=== PATIENT | male | born 1955 | race Caucasian/White ===

== ENCOUNTER 2025-02-12 21:37 | Inpatient (IN) | payer MEDICARE, OTHER ==
[~2025-02-12] VITALS: Ht 170.2 cm; Wt 73.5 kg
[2025-02-12] MEDS: SODIUM CHLORIDE 0.9% (SEPSIS BOLUS) IV ONE (22:34)
[2025-02-12 22:39] LABS: HEMATOCRIT. 35.8 % (42.0-52.0); HEMOGLOBIN. 11.4 g/dL (14.0-18.0); MEAN CORPUSCULAR HEMOGLOBIN 27.9 pg (28.0-32.0); MEAN CORPUSCULAR HGB CONC 31.8 g/dL (31.0-37.0); MEAN CORPUSCULAR VOLUME 87.7 fL (80.0-94.0); MEAN PLATELET VOLUME 8.4 fl (7.4-10.4); PLATELET 208 x1000/uL (130-400); RED BLOOD CELL COUNT 4.08 mill/uL (4.7-6.1); RED CELL DISTRIBUTION WIDTH 15.3 % (11.6-14.6)
[2025-02-12 22:41] LABS: DIFFERENTIAL COMMENT 1
[2025-02-12 22:49] LABS: CHLORIDE 92 mEq/L (98-107); POTASSIUM 3.6 mEq/L (3.5-5.1); SODIUM 137 mEq/L (136-145)
[2025-02-12 22:50] LABS: CALCIUM 9.2 mg/dL (8.7-10.4)
[2025-02-12 22:55] LABS: CREATININE 0.3 mg/dL (0.6-1.3); ETHANOL BLOOD < 10 mg/dL (<10); GLUCOSE 149 mg/dL (70-105); TROPONIN I HIGH SENSITIVITY 5 ng/L (3.0-53); UREA NITROGEN BLOOD 11 mg/dL (9-23)
[2025-02-12 22:57] LABS: ALANINE AMINOTRANSFERASE 9 IU/L (10-49); ALBUMIN 3.4 g/dL (3.2-4.8); ASPARTATE AMINOTRANSFERASE 17 IU/L (<34); BILIRUBIN DIRECT < 0.1 mg/dL (<=3.0); BILIRUBIN TOTAL 0.3 mg/dL (0.1-1.0); PROTEIN TOTAL 6.3 g/dL (6.0-8.3)
[2025-02-12 22:59] LABS: CARBON DIOXIDE > 40 mEq/L (21-32)
[2025-02-12] MEDS ORDERED: VANCOMYCIN 1000MG/250ML 250 ML IV ONE (23:00)
[2025-02-12 23:04] LABS: PLATELET ESTIMATE NORMAL
[2025-02-12 23:05] LABS: ANISOCYTOSIS 1+
[2025-02-12] MEDS: PIPERACILLIN/TAZO 3.375G/50ML 50 ML IV NR (23:07)
[2025-02-12] MEDS: VANCOMYCIN 1GM/200ML PMX (BAXTER) IV NR (23:20)
[2025-02-12 23:22] LABS: CLARITY URINE CLOUDY (CLEAR); COLOR URINE DARK YELLOW (YELLOW); GLUCOSE URINE NEGATIVE (NEGATIVE); KETONES URINE NEGATIVE (NEGATIVE); LEUKOCYTE ESTERASE URINE 2+ (NEGATIVE); NITRITE URINE POSITIVE (NEGATIVE); OCCULT BLOOD URINE 3+ (NEGATIVE); PROTEIN URINE 2+ (NEGATIVE); SPECIFIC GRAVITY URINE 1.022 (1.005-1.030)
[2025-02-12 23:31] LABS: *AMPHETAMINES SCREEN URINE NEGATIVE (NEGATIVE); *BARBITURATES SCREEN URINE NEGATIVE (NEGATIVE); *BENZODIAZEPINES SCREEN URINE NEGATIVE (NEGATIVE); *COCAINE SCREEN URINE NEGATIVE (NEGATIVE); CANNABINOID URINE SCREEN NEGATIVE (NEGATIVE); ECSTASY MDMA SCREEN URINE NEGATIVE (NEGATIVE); METHADONE URINE SCREEN NEGATIVE (NEGATIVE); OPIATES URINE SCREEN NEGATIVE (NEGATIVE); PHENCYCLIDINE URINE SCREEN NEGATIVE (NEGATIVE)
[2025-02-12] MEDS: ACETAMINOPHEN 325MG TABLET PO ONE (23:38)
[2025-02-12 23:43] LABS: BACTERIA URINE 2+; RBC URINE TNTC /hpf (0-2); SQUAMOUS EPITHELIAL CELL URINE FEW /lpf (RARE/1+); WBC URINE TNTC /hpf (0-2)
[2025-02-12 23:54] LABS: INR 1.3; PROTHROMBIN TIME 13.5 sec (9.6-11.0)
[2025-02-12 23:56] LABS: BG CARBOXYHEMOGLOBIN 0.5 % (0.5-1.5); BG DEOXYHEMOGLOBIN 1.8 % (0.0-5.0); BG FRACTION INSPIRED OXYGEN 32; BG HCO3 ACT 40.6 mmol/L (21.0-28.0); BG METHEMOGLOBIN 0.4 % (0.5-1.5); BG OXYGEN SATURATION 98.2 % (94.0-98.0); BG OXYHEMOGLOBIN 97.3 % (94.0-98.0); BG PCO2 85.1 mmHg (35.0-48.0); BG PH 7.296 (7.350-7.450); BG PO2 104.8 mmHg (83.0-108.0); BG SAMPLE SITE RIGHT BRACHIAL; BG VENT MODE NASAL CANNULA
[2025-02-13] VITALS (82 sets, daily range): BP systolic 92–158; BP diastolic 51–76; PULSE 71–96; RESP 13–22; TEMP 36.7–38.9; O2SAT 94–100
[2025-02-13] MEDS ORDERED: SUCCINYLCHOLINE CHLORIDE 200MG/10ML IV ONE (00:30)
[2025-02-13] MEDS ORDERED: NOREPINEPHRINE 8MG/250ML PMX 250 ML IV ONE (00:30)
[2025-02-13] MEDS ORDERED: ETOMIDATE 2MG/ML 10ML VIAL IV ONE ×2 (00:30)
[2025-02-13] MEDS: PROPOFOL 10MG/ML 100ML 100 ML IV ONE (00:40)
[2025-02-13] MEDS ORDERED: ONDANSETRON HCL 4MG/2ML INJ IV PRN (00:45)
[2025-02-13] MEDS ORDERED: HYDROCODONE/ACETAMINOPHEN 5/325MG TABLET PO PRN (00:45)
[2025-02-13] MEDS ORDERED: CLONIDINE 0.1MG TABLET PO PRN (00:45)
[2025-02-13] MEDS ORDERED: NALOXONE HCL 0.4MG/ML VIAL IV PRN (01:00)
[2025-02-13] MEDS: NOREPINEPHRINE 8MG/250ML PMX 250 ML IV PRN (02:47)
[2025-02-13] MEDS: PIPERACILLIN/TAZO 3.375G/50ML 50 ML IV SCH (05:18)
[2025-02-13] MEDS: VANCOMYCIN 1GM/200ML PMX (BAXTER) IV SCH ×2 (05:18→20:09)
[2025-02-13 05:29] LABS: BG BASE EXCESS 13.7 mmol/L (-2.0-3.0); BG CARBOXYHEMOGLOBIN 0.7 % (0.5-1.5); BG DEOXYHEMOGLOBIN 0.7 % (0.0-5.0); BG FRACTION INSPIRED OXYGEN 50; BG HCO3 ACT 37.2 mmol/L (21.0-28.0); BG OXYGEN SATURATION 99.3 % (94.0-98.0); BG OXYHEMOGLOBIN 98.6 % (94.0-98.0); BG PH 7.565 (7.350-7.450); BG PO2 121.9 mmHg (83.0-108.0); BG SAMPLE SITE RIGHT RADIAL; BG TOTAL HEMOGLOBIN 11.9 g/dL (13.5-17.5); BG VENT MODE VENT - AC
[2025-02-13] MEDS: PROPOFOL 10MG/ML 100ML 100 ML IV PRN (05:37)
[2025-02-13 05:57] LABS: BASOPHILS % 0.7 % (0.0-2.0); EOSINOPHILS % 1.3 % (0.0-5.0); HEMATOCRIT. 35.1 % (42.0-52.0); HEMOGLOBIN. 11.1 g/dL (14.0-18.0); LYMPHOCYTES % 9.8 % (20.0-50.0); MEAN CORPUSCULAR HGB CONC 31.7 g/dL (31.0-37.0); MEAN CORPUSCULAR VOLUME 88.2 fL (80.0-94.0); MONOCYTES % 9.6 % (2.0-8.0); NEUTROPHILS % 78.6 % (40.0-76.0); PLATELET 195 x1000/uL (130-400); RED BLOOD CELL COUNT 3.98 mill/uL (4.7-6.1); WHITE BLOOD COUNT 9.1 x1000/uL (4.5-11.0)
[2025-02-13 06:11] LABS: CARBON DIOXIDE 37 mEq/L (21-32); CHLORIDE 94 mEq/L (98-107); POTASSIUM 3.5 mEq/L (3.5-5.1); SODIUM 139 mEq/L (136-145)
[2025-02-13 06:16] LABS: TROPONIN I HIGH SENSITIVITY 10 ng/L (3.0-53)
[2025-02-13 06:17] LABS: CREATININE 0.3 mg/dL (0.6-1.3); GLUCOSE 115 mg/dL (70-105); UREA NITROGEN BLOOD 11 mg/dL (9-23)
[2025-02-13] MEDS: IPRATROPIUM/ALBUTEROL 0.5-3(2.5)MG/3ML NEB NEB SCH (07:52)
[2025-02-13] MEDS: PANTOPRAZOLE SODIUM 40 MG/VIAL IV SCH (09:43)
[2025-02-13] MEDS: ENOXAPARIN 40MG/0.4ML SYR SUBCUT SCH (09:44)
[2025-02-13] MEDS: ACETAMINOPHEN 325MG TABLET PO PRN (09:53)
[2025-02-13 12:36] LABS: *AMPHETAMINES SCREEN URINE NEGATIVE (NEGATIVE); *BARBITURATES SCREEN URINE NEGATIVE (NEGATIVE); *BENZODIAZEPINES SCREEN URINE NEGATIVE (NEGATIVE); *COCAINE SCREEN URINE NEGATIVE (NEGATIVE); CANNABINOID URINE SCREEN NEGATIVE (NEGATIVE); ECSTASY MDMA SCREEN URINE NEGATIVE (NEGATIVE); METHADONE URINE SCREEN NEGATIVE (NEGATIVE); OPIATES URINE SCREEN NEGATIVE (NEGATIVE); PHENCYCLIDINE URINE SCREEN NEGATIVE (NEGATIVE)
[2025-02-13 12:39] LABS: BG BASE EXCESS 12.8 mmol/L (-2.0-3.0); BG CARBOXYHEMOGLOBIN 0.1 % (0.5-1.5); BG DEOXYHEMOGLOBIN 0.3 % (0.0-5.0); BG FRACTION INSPIRED OXYGEN 35; BG HCO3 ACT 37.3 mmol/L (21.0-28.0); BG METHEMOGLOBIN 0.3 % (0.5-1.5); BG OXYGEN SATURATION 99.7 % (94.0-98.0); BG OXYHEMOGLOBIN 99.3 % (94.0-98.0); BG PCO2 47.2 mmHg (35.0-48.0); BG PH 7.516 (7.350-7.450); BG PO2 158.2 mmHg (83.0-108.0); BG SAMPLE SITE RIGHT RADIAL; BG TOTAL HEMOGLOBIN 12.2 g/dL (13.5-17.5); BG VENT MODE VENT - AC/VC
[2025-02-13 16:21] LABS: TROPONIN I HIGH SENSITIVITY 30 ng/L (3.0-53)
[2025-02-14] VITALS (62 sets, daily range): BP systolic 106–147; BP diastolic 66–79; PULSE 82–108; RESP 12–36; TEMP 36.4–37.2; O2SAT 95–100
[2025-02-14 05:28] LABS: BASOPHILS % 0.3 % (0.0-2.0); EOSINOPHILS % 0.7 % (0.0-5.0); HEMATOCRIT. 36.5 % (42.0-52.0); HEMOGLOBIN. 11.8 g/dL (14.0-18.0); LYMPHOCYTES % 13.6 % (20.0-50.0); MEAN CORPUSCULAR HEMOGLOBIN 28.2 pg (28.0-32.0); MEAN CORPUSCULAR HGB CONC 32.3 g/dL (31.0-37.0); MEAN CORPUSCULAR VOLUME 87.2 fL (80.0-94.0); MEAN PLATELET VOLUME 8.1 fl (7.4-10.4); MONOCYTES % 9.3 % (2.0-8.0); NEUTROPHILS % 76.1 % (40.0-76.0); PLATELET 218 x1000/uL (130-400); RED BLOOD CELL COUNT 4.18 mill/uL (4.7-6.1); RED CELL DISTRIBUTION WIDTH 15.1 % (11.6-14.6); WHITE BLOOD COUNT 8.8 x1000/uL (4.5-11.0)
[2025-02-14 05:32] LABS: CHLORIDE 94 mEq/L (98-107); POTASSIUM 2.9 mEq/L (3.5-5.1); SODIUM 140 mEq/L (136-145)
[2025-02-14 05:33] LABS: CALCIUM 8.9 mg/dL (8.7-10.4); CARBON DIOXIDE 34 mEq/L (21-32)
[2025-02-14 05:38] LABS: CREATININE 0.3 mg/dL (0.6-1.3); GLUCOSE 117 mg/dL (70-105); UREA NITROGEN BLOOD 13 mg/dL (9-23)
[2025-02-14 09:01] LABS: BG BASE EXCESS 10.4 mmol/L (-2.0-3.0); BG CARBOXYHEMOGLOBIN 0.6 % (0.5-1.5); BG DEOXYHEMOGLOBIN 0.7 % (0.0-5.0); BG FRACTION INSPIRED OXYGEN 35; BG METHEMOGLOBIN 0.3 % (0.5-1.5); BG OXYGEN SATURATION 99.3 % (94.0-98.0); BG OXYHEMOGLOBIN 98.4 % (94.0-98.0); BG PCO2 52.2 mmHg (35.0-48.0); BG PH 7.456 (7.350-7.450); BG PO2 151.9 mmHg (83.0-108.0); BG SAMPLE SITE RIGHT BRACHIAL; BG TOTAL HEMOGLOBIN 12.1 g/dL (13.5-17.5); BG VENT MODE VENT - AC
[2025-02-14 10:23] LABS: BG BASE EXCESS 11.8 mmol/L (-2.0-3.0); BG CARBOXYHEMOGLOBIN 0.3 % (0.5-1.5); BG DEOXYHEMOGLOBIN 0.6 % (0.0-5.0); BG FRACTION INSPIRED OXYGEN 35; BG HCO3 ACT 38.2 mmol/L (21.0-28.0); BG OXYGEN SATURATION 99.4 % (94.0-98.0); BG OXYHEMOGLOBIN 99.1 % (94.0-98.0); BG PH 7.436 (7.350-7.450); BG PO2 148.6 mmHg (83.0-108.0); BG SAMPLE SITE RIGHT BRACHIAL; BG TOTAL HEMOGLOBIN 12.1 g/dL (13.5-17.5); BG VENT MODE VENT - CPAP
[2025-02-14] MEDS: KCL 20MEQ/100ML PREMIX 100 ML IV SCH (14:24)
[2025-02-14] MEDS: VANCOMYCIN 1.25GM/250ML IV SCH (17:46)
[2025-02-15] VITALS (53 sets, daily range): BP systolic 101–147; BP diastolic 64–87; PULSE 89–104; RESP 16–49; TEMP 36.6–37.4; O2SAT 93–100
[2025-02-15 07:13] LABS: CARBON DIOXIDE 35 mEq/L (21-32); CHLORIDE 96 mEq/L (98-107); POTASSIUM 4.6 mEq/L (3.5-5.1); SODIUM 140 mEq/L (136-145)
[2025-02-15 07:14] LABS: CALCIUM 8.6 mg/dL (8.7-10.4)
[2025-02-15 07:19] LABS: CREATININE 0.3 mg/dL (0.6-1.3); GLUCOSE 163 mg/dL (70-105); UREA NITROGEN BLOOD 9 mg/dL (9-23)
[2025-02-15 10:16] LABS: BASOPHILS % 0.4 % (0.0-2.0); EOSINOPHILS % 1.7 % (0.0-5.0); HEMATOCRIT. 35.5 % (42.0-52.0); HEMOGLOBIN. 11.3 g/dL (14.0-18.0); LYMPHOCYTES % 8.3 % (20.0-50.0); MEAN CORPUSCULAR HEMOGLOBIN 27.6 pg (28.0-32.0); MEAN CORPUSCULAR HGB CONC 31.9 g/dL (31.0-37.0); MEAN CORPUSCULAR VOLUME 86.6 fL (80.0-94.0); MEAN PLATELET VOLUME 8.7 fl (7.4-10.4); NEUTROPHILS % 82.6 % (40.0-76.0); RED CELL DISTRIBUTION WIDTH 15.4 % (11.6-14.6); WHITE BLOOD COUNT 9.6 x1000/uL (4.5-11.0)
[2025-02-15 10:30] LABS: PLATELET 230 x1000/uL (130-400)
[2025-02-15 11:57] LABS: BG BASE EXCESS 12.9 mmol/L (-2.0-3.0); BG CARBOXYHEMOGLOBIN 0.8 % (0.5-1.5); BG DEOXYHEMOGLOBIN 4.1 % (0.0-5.0); BG FRACTION INSPIRED OXYGEN 28; BG HCO3 ACT 39.7 mmol/L (21.0-28.0); BG METHEMOGLOBIN 0.3 % (0.5-1.5); BG OXYGEN SATURATION 95.9 % (94.0-98.0); BG OXYHEMOGLOBIN 94.8 % (94.0-98.0); BG PCO2 61.3 mmHg (35.0-48.0); BG PH 7.429 (7.350-7.450); BG PO2 73.2 mmHg (83.0-108.0); BG SAMPLE SITE RIGHT RADIAL; BG TOTAL HEMOGLOBIN 12.3 g/dL (13.5-17.5); BG VENT MODE NASAL CANNULA
[2025-02-15] MEDS: MEROPENEM 1G/100ML 100 ML IV SCH (13:43)
[2025-02-15] MEDS: METHYLPREDNISOLONE SOD SUCC 125MG/2ML (ACT-O-VIAL) IV SCH (18:30)
[2025-02-15] MEDS ORDERED: CEFEPIME 2GM IN DEXT 5% 100ML IV SCH (18:45)
[2025-02-15] MEDS: BUDESONIDE 0.5MG/2ML NEB HHN SCH (20:45)
[2025-02-15] MEDS: CEFEPIME 2GM/50ML DUPLEX 50 ML IV SCH (23:24)
[2025-02-16] VITALS (32 sets, daily range): BP systolic 103–143; BP diastolic 68–92; PULSE 87–106; RESP 18–38; TEMP 36.4–37.3; O2SAT 96–100
[2025-02-16] MEDS: ACETYLCYSTEINE 200MG/ML 20% VIAL 4ML INH SCH (00:20)
[2025-02-16] MEDS ORDERED: LIDOCAINE 2% 6ML GLYDO MM NR (01:30)
[2025-02-16] MEDS: LIDOCAINE 2% 6ML GLYDO MM NR (02:59)
[2025-02-16 03:38] LABS: CHLORIDE 98 mEq/L (98-107); POTASSIUM 3.5 mEq/L (3.5-5.1); SODIUM 139 mEq/L (136-145)
[2025-02-16 03:39] LABS: CALCIUM 9.1 mg/dL (8.7-10.4); CARBON DIOXIDE 38 mEq/L (21-32)
[2025-02-16 03:44] LABS: GLUCOSE 287 mg/dL (70-105); UREA NITROGEN BLOOD 13 mg/dL (9-23)
[2025-02-16 04:32] LABS: CREATININE 0.5 mg/dL (0.6-1.3)
[2025-02-16] MEDS: VANCOMYCIN 1GM PMX (XELLIA) 200 ML IV SCH (18:28)
[2025-02-17] VITALS (16 sets, daily range): BP systolic 103–136; BP diastolic 59–76; PULSE 90–120; RESP 10–44; TEMP 36.5–37.3; O2SAT 93–99
[2025-02-17] MEDS: GUAIFENESIN 200MG/10ML SUGAR FREE UDC PO SCH (13:35)
[2025-02-18] VITALS (15 sets, daily range): BP systolic 96–140; BP diastolic 57–89; PULSE 73–90; RESP 13–31; TEMP 36.6–37.1; O2SAT 97–100
[2025-02-19] VITALS (12 sets, daily range): BP systolic 106–131; BP diastolic 58–82; PULSE 75–89; RESP 12–33; TEMP 36.1–36.6; O2SAT 91–98
[2025-02-19] MEDS: BLOOD SUGAR DIAGNOSTIC STRIP TEST SCH (08:00)
[2025-02-19] MEDS: IPRATROPIUM/ALBUTEROL 0.5-3(2.5)MG/3ML NEB HHN PRN (12:50)
== END 2025-02-19 16:44 | DRG 871 ==
LOC: ER 21:37 → MICUSO 02-13 00:29 → ENRESERV 02-13 01:33 → 5EST 02-16 10:05
PROVIDERS: ADMIT Internal Medicine; ATTEND Internal Medicine
PROC: 5A1945Z Respiratory Ventilation, 24-96 Consecutive Hours (ICD-10-PCS; principal; 2025-02-13)
PROC: 0BH17EZ Insertion of Endotracheal Airway into Trachea, Via Natural or Artificial Opening (ICD-10-PCS; 2025-02-13)
DX: A41.89 Other specified sepsis (principal); G82.50 Quadriplegia, unspecified; G92.8 Other toxic encephalopathy; L89.154 Pressure ulcer of sacral region, stage 4; J96.01 Acute respiratory failure with hypoxia; R65.21 Severe sepsis with septic shock; J96.02 Acute respiratory failure with hypercapnia; J15.1 Pneumonia due to Pseudomonas; J69.0 Pneumonitis due to inhalation of food and vomit; L89.893 Pressure ulcer of other site, stage 3; J15.69 Pneumonia due to other Gram-negative bacteria; I21.4 Non-ST elevation (NSTEMI) myocardial infarction; N39.0 Urinary tract infection, site not specified; M48.56XA Collapsed vertebra, not elsewhere classified, lumbar region, initial encounter for fracture; Z99.11 Dependence on respirator [ventilator] status; Z16.12 Extended spectrum beta lactamase (ESBL) resistance; Z16.13 Resistance to carbapenem; Z66 Do not resuscitate; R62.7 Adult failure to thrive; Z68.30 Body mass index [BMI] 30.0-30.9, adult; R13.10 Dysphagia, unspecified; D63.8 Anemia in other chronic diseases classified elsewhere; I48.91 Unspecified atrial fibrillation; E11.9 Type 2 diabetes mellitus without complications; J45.909 Unspecified asthma, uncomplicated; M48.02 Spinal stenosis, cervical region; D50.9 Iron deficiency anemia, unspecified; I10 Essential (primary) hypertension; Y95 Nosocomial condition; K21.9 Gastro-esophageal reflux disease without esophagitis; Z86.711 Personal history of pulmonary embolism; Z86.718 Personal history of other venous thrombosis and embolism
CPT/HCPCS: 31500; 31720; 36415; 36600; 71045; 80048; 80076; 80202; 80305; 80320; 81003; 82375; 82805; 82962; 83605; 84145; 84484; 85025; 87070; 87077; 87186; 92610; 93005; 93306; 93970; 94002; 94003; 94070; 94640; 94660; 94664; 94667; 94760; 96365; 96375; 97161; 98960; 99291; J0330; J0692; J1650; J2185; J2470; J2543; J2704; J2919; J3370; J3480; J3490; J7030; J7608; J7626; G0480